=== PATIENT | male | born 1985 | race Caucasian/White ===

== ENCOUNTER 2016-08-01 12:23 | Inpatient (IN) | payer OTHER ==
[2016-08-01 13:12] VITALS: BMI 24.7
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
[2016-08-01] MEDS ORDERED: P-EPHED 60MG/TRIPROLIDI 2.5MG TABLET PO PRN (15:16)
[2016-08-01] MEDS ORDERED: MENTHOL/PHENOL 1 EACH UD MM PRN (15:16)
[2016-08-01] MEDS ORDERED: NICOTINE POLACRILEX 2 MG GUM BUC PRN (15:16)
[2016-08-01] MEDS ORDERED: MAG HYDROX/AL HYDROX/SIMETH 30 ML UNIT-DOSE CUP PO PRN (15:16)
[2016-08-01] MEDS ORDERED: IBUPROFEN 400 MG TABLET (FP) PO PRN (15:16)
[2016-08-01] MEDS ORDERED: guaiFENesin/D-METHORPHAN HB 10 ML UNIT-DOSE CUPS PO PRN (15:16)
[2016-08-01] MEDS ORDERED: MAGNESIUM HYDROX 2400MG/30ML ORAL SUSPENSION 30 ML CUP PO PRN (15:16)
[2016-08-01] MEDS ORDERED: hydrOXYzine PAMOATE 25 MG CAPSULE (FP) PO PRN (15:16)
[2016-08-01] MEDS ORDERED: MAGNESIUM CITRATE 300 ML BOTTLE PO PRN (15:16)
[2016-08-01] MEDS ORDERED: diazePAM 5 MG TABLET PO PRN (15:16)
[2016-08-01] MEDS ORDERED: LOPERAMIDE HCL 2 MG CAPSULE PO PRN (15:16)
[2016-08-01] MEDS ORDERED: ACETAMINOPHEN 325 MG TABLET (FP) PO PRN (15:16)
[2016-08-01] MEDS ORDERED: METHADONE HCL 10 MG TABLET (FOR DETOX USE ONLY) PO ONE ×2 (15:50→23:00)
--- NOTE | 2016-08-01 20:20 | PN ---
[facility] Progress Note Note: RECEIVED ER REPORT PATIENT IS MEDICALLY CLEARED FOR DETOX AT [facility] PATIENT IS ALERT ORIENTED X 3 AMBULATE STEADY GAIT SPEECH CLEARLY CALM AND COOPERATIVE
[2016-08-01] MEDS ORDERED: METHADONE HCL 10 MG TABLET (FOR DETOX USE ONLY) ONE (20:55)
[2016-08-01] MEDS: THIAMINE HCL 100 MG TABLET (FP) PO SCH (21:11)
[2016-08-01] MEDS: CYCLOBENZAPRINE HCL 10 MG TABLET (FP) PO SCH (21:11)
[2016-08-01] MEDS: diphenhydrAMINE HCL 50 MG CAPSULE PO PRN (21:13)
[2016-08-01] MEDS: NICOTINE 14 MG/24 HOURS TOPICAL PATCH TD SCH (21:15)
[2016-08-02 05:32] LABS: URINE APPEARANCE CLEAR; URINE BILIRUBIN NEGATIVE (NEGATIVE); URINE BLOOD NEGATIVE (NEGATIVE); URINE COLOR AMBER; URINE GLUCOSE (UA) NEGATIVE (NEGATIVE); URINE KETONE NEGATIVE (NEGATIVE); URINE LEUK ESTERASE NEGATIVE (NEGATIVE); URINE NITRITE NEGATIVE (NEGATIVE); URINE UROBILINOGEN NEGATIVE E.U./dl (0.2-1.0)
[2016-08-02 05:37] LABS: URINE PROTEIN 1+ (NEGATIVE)
[2016-08-02 05:39] LABS: CALCIUM OXALATE CRYSTALS RARE /hpf (NONE SEEN); URINE BACTERIA RARE /hpf (NONE SEEN); URINE HYALINE CAST 4 /lpf; URINE MUCUS MANY; URINE RBC <1 /hpf (0-3); URINE WBC <1 /hpf (3-5)
[2016-08-02] MEDS: CYCLOBENZAPRINE HCL 10 MG TABLET (FP) PO SCH ×3 (05:56→22:35)
[2016-08-02] MEDS ORDERED: METHADONE HCL 10 MG TABLET (FOR DETOX USE ONLY) PO ONE (10:00)
[2016-08-02] MEDS: NICOTINE 14 MG/24 HOURS TOPICAL PATCH TD SCH (10:21)
[2016-08-02] MEDS: PRENATAL VITAMINS W/ FOLIC ACID TABLET (FP) PO SCH (10:21)
[2016-08-02 10:32] LABS: MCH 29.1 pg (25.7-33.7); MCHC 33.7 g/dl (32.0-35.9); MEAN CELL VOLUME 86.3 fl (80-96); MEAN PLT VOLUME 8.7 fl (7.5-11.1); PLATELET COUNT 352 K/MM3 (134-434); RDW 13.2 % (11.9-15.9); WHITE BLOOD COUNT 5.2 K/mm3 (4.0-10.0)
--- NOTE | 2016-08-02 11:04 | PN ---
BHS COWS - Scale Resting Pulse: 1= [place] 81-100 Sweatin=Flushed/Facial Moisture Restless Observation: 1= Difficult to Sit Still Pupil Size: 2= Moderately Dilated Bone or Joint Aches: 1= Mild Discomfort Runny Nose/ Eye Tearin= Runny Nose/Eyes GI Upset > 30mins: 2= Nausea/Diarrhea Tremor Observation of Outstretched Hands: 1= Tremor [place], Not Seen Yawning Observation: 0= None Anxiety or Irritability: 2=Irritable/Anxious Goose Flesh Skin: 0=Smooth Skin COWS Score: 14 BHS Progress Note (SOAP) Objective: 08/02/16 11:03 Laboratory Tests 08/01/16 08/02/16 08/02/16 22:13 08:00 08:00 WBC 5.2 RBC 4.91 Hgb 14.3 Hct 42.4 MCV 86.3 MCHC 33.7 RDW 13.2 Plt Count 352 MPV 8.7 Sodium 136 Potassium 4.3 Chloride 103 Urine Color [place] Urine Appearance Clear Urine pH 5.0 Ur Specific [place] 1.030 Urine Protein 1+ H Urine Glucose (UA) Negative Urine Ketones Negative Urine Blood Negative Urine Nitrite Negative Urine Bilirubin Negative Urine Urobilinogen Negative Ur Leukocyte Esterase Negative Urine RBC <1 Urine WBC <1 Ur Epithelial Cells Rare Calcium Oxalate Crystal Rare Urine Bacteria Rare Hyaline Casts 4 Urine Mucus Many Vital Signs - 24 hr 08/01/16 08/01/16 08/02/16 13:10 22:06 00:22 Temperature 96.4 F L 98.9 F Pulse Rate 92 H 86 Respiratory 20 18 18 Rate Blood Pressure 122/87 126/80 08/02/16 08/02/16 06:31 09:30 Temperature 98.6 F 97.1 F L Pulse Rate 70 86 Respiratory 18 18 Rate Blood Pressure 117/81 125/73 Assessment: 08/02/16 11:03 ongoing withdrawal Plan: continue detox protocol
[2016-08-02 11:33] LABS: HIV 1 & 2 AB NEGATIVE; HIV 1 AGp24 NEGATIVE
[2016-08-02 11:56] LABS: ALBUMIN 4.6 g/dl (3.4-5.0); ALK PHOS 65 U/L (45-117); ANION GAP 5 (8-16); BILIRUBIN,TOTAL 1.1 mg/dL (0.2-1.0); CALCIUM 9.7 mg/dL (8.5-10.1); CO2 28 mmol/L (21-32); GLUCOSE,RANDOM 60 mg/dL (74-106); SGOT/AST 22 U/L (15-37); SGPT/ALT 27 U/L (12-78); TOT PROT 8.1 g/dl (6.4-8.2)
--- NOTE | 2016-08-02 16:20 | EKG ---
Test Reason : Blood Pressure : / mmHG Vent. Rate : 070 BPM Atrial Rate : 070 BPM P-R Int : 138 ms QRS Dur : 100 ms QT Int : 394 ms P-R-T Axes : 062 083 072 degrees QTc Int : 425 ms NORMAL SINUS RHYTHM WITH SINUS ARRHYTHMIA NORMAL ECG NO PREVIOUS ECGS AVAILABLE Confirmed by ILSA CROSS, THALIA ([id number]) on 08/02/2016 4:19:43 PM Referred By: Confirmed By:THALIA ROSENBAUM MD
--- NOTE | 2016-08-02 20:30 | CONSULT ---
[facility] Psychiatric Consult - Data Date of interview: 08/02/16 Admission source: [facility] Identifying data: Readmission to [facility] for this 31 y/o male seeking detox treatment on for heroin and cocaine dependence.Patient is ,a father of two,domiciled and employed. Substance Abuse History: - Smoking Cessation. Smoking history: Current every day smoker. Have you smoked in the past 12 months: Yes. Aproximately how many cigarettes per day: 3. Cigars Per Day: 0. Hx Chewing Tobacco Use: No. ' Breaking Loose' booklet given: 08/01/16. - Substance & Tx. History. Hx Alcohol Use: No (DENIES). Hx Substance Use: Yes (HEROIN/COCAINE). Substance Use Type: Cocaine, Heroin. Hx Substance Use Treatment: Yes ([facility]-DETOX). - Substances Abused. CRACK. Route: Inhalation. Frequency: 1-3 times last 30 days. Amount used: $100. Age of first use: 18. Date of Last Use: 07/31/16. * * Heroin. Route: Inhalation. Frequency: Daily. Amount used: 6-7 BAGS. Age of first use: 26. Date of Last Use: 08/01/16. OXYCODONE. Route: Oral. Frequency: 1-3 times last 30 days (RX OXYCODONE FOR PAIN MANAGEMENT). Amount used: 10 MG. Age of first use: 30. Date of Last Use: 06/20/16. Confirmed by patient. Medical History: Remarkable for a history of anemia and low back pain. Psychiatric History: Patient denies. Physical/Sexual Abuse/Trauma History: Patient denies. Additional Comment: Urine Drug Screen Results: CALOS-Cocaine, OPI-Opiates.Noted. Mental Status Exam - Mental Status Exam Alert and Oriented to: Time, Place, Person Cognitive Function: Good Patient Appearance: Well Groomed Mood: Hopeful, Euthymic Affect: Appropriate, Normal Range Patient Behavior: Appropriate, Cooperative Speech Pattern: Clear Voice Loudness: Normal Thought Process: Intact, Goal Oriented Thought Disorder: Not Present Hallucinations: Denies Suicidal Ideation: Denies Homicidal Ideation: Denies Insight/Judgement: Poor Sleep: Well Appetite: Good Muscle strength/Tone: Normal Gait/Station: Normal Psychiatric Findings - Problem List ([place] 1, 2,3) (1) Opioid dependence with withdrawal Current Visit: Yes Status: Acute (2) Cocaine dependence Current Visit: Yes Status: Acute (3) Nicotine dependence Current Visit: Yes Status: Acute Qualifiers: Nicotine product type: cigarettes Substance use status: uncomplicated Qualified Code(s): F17.210 - Nicotine dependence, cigarettes, uncomplicated (4) Chronic low back pain Current Visit: Yes Status: Chronic Qualifiers: Back pain laterality: unspecified (5) Ganglion of right hand Current Visit: Yes Status: Chronic (6) Herniated disc Current Visit: Yes Status: Chronic - Initial Treatment Plan Initial Treatment Plan: Psychoeducation.Detoxification.Observation.
[2016-08-02] MEDS: THIAMINE HCL 100 MG TABLET (FP) PO SCH (22:35)
[2016-08-02] MEDS: diphenhydrAMINE HCL 50 MG CAPSULE PO PRN (22:36)
[2016-08-03] MEDS: CYCLOBENZAPRINE HCL 10 MG TABLET (FP) PO SCH ×3 (05:56→22:24)
[2016-08-03] MEDS ORDERED: METHADONE HCL 5 MG TABLET (FOR DETOX USE ONLY) PO ONE (10:00)
[2016-08-03] MEDS: NICOTINE 14 MG/24 HOURS TOPICAL PATCH TD SCH (10:24)
[2016-08-03] MEDS: PRENATAL VITAMINS W/ FOLIC ACID TABLET (FP) PO SCH (10:24)
--- NOTE | 2016-08-03 14:46 | PN ---
BHS COWS - Scale Resting Pulse: 1= [place] 81-100 Sweatin= Chills/Flushing Restless Observation: 1= Difficult to Sit Still Pupil Size: 0= Normal to Room Light Bone or Joint Aches: 2= Severe Diffuse Aches Runny Nose/ Eye Tearin= Runny Nose/Eyes GI Upset > 30mins: 2= Nausea/Diarrhea Tremor Observation of Outstretched Hands: 2= Slight Tremor Visible Yawning Observation: 0= None Anxiety or Irritability: 2=Irritable/Anxious Goose Flesh Skin: 0=Smooth Skin COWS Score: 13 BHS Progress Note (SOAP) Subjective: Anxious, sweating, tremor, restless Objective: 08/03/16 14:43 Last Vital Signs Temp Pulse Resp BP Pulse Ox 97.1 F L 62 18 106/90 08/03/16 13:37 08/03/16 13:37 08/03/16 13:37 08/03/16 13:37 Laboratory Tests 08/01/16 08/02/16 08/02/16 22:13 08:00 08:00 WBC 5.2 RBC 4.91 Hgb 14.3 Hct 42.4 MCV 86.3 MCHC 33.7 RDW 13.2 Plt Count 352 MPV 8.7 Sodium 136 Potassium 4.3 Chloride 103 Carbon Dioxide 28 Anion Gap 5 L BUN 8 Creatinine 1.0 D Creat Clearance w eGFR > 60 Random Glucose 60 L D Calcium 9.7 Total Bilirubin 1.1 H D AST 22 D ALT 27 D Alkaline Phosphatase 65 D Total Protein 8.1 Albumin 4.6 Urine Color [place] Urine Appearance Clear Urine pH 5.0 Ur Specific [place] 1.030 Urine Protein 1+ H Urine Glucose (UA) Negative Urine Ketones Negative Urine Blood Negative Urine Nitrite Negative Urine Bilirubin Negative Urine Urobilinogen Negative Ur Leukocyte Esterase Negative Urine RBC <1 Urine WBC <1 Ur Epithelial Cells Rare Calcium Oxalate Crystal Rare Urine Bacteria Rare Hyaline Casts 4 Urine Mucus Many RPR Titer HIV 1&2 Antibody Screen HIV P24 Antigen 08/02/16 08/02/16 08:00 08:00 WBC RBC Hgb Hct MCV MCHC RDW Plt Count MPV Sodium Potassium Chloride Carbon Dioxide Anion Gap BUN Creatinine Creat Clearance w eGFR Random Glucose Calcium Total Bilirubin AST ALT Alkaline Phosphatase Total Protein Albumin Urine Color Urine Appearance Urine pH Ur Specific [place] Urine Protein Urine Glucose (UA) Urine Ketones Urine Blood Urine Nitrite Urine Bilirubin Urine Urobilinogen Ur Leukocyte Esterase Urine RBC Urine WBC Ur Epithelial Cells Calcium Oxalate Crystal Urine Bacteria Hyaline Casts Urine Mucus RPR Titer Nonreactive HIV 1&2 Antibody Screen Negative HIV P24 Antigen Negative Labs noted: UA 1+ protein Assessment: 08/03/16 14:45 Withdrawal symptoms Noted with proteinuria Plan: Continue detox Proteinuria: encouraged to drink more water, repeat UA
[2016-08-03] MEDS: THIAMINE HCL 100 MG TABLET (FP) PO SCH (22:24)
[2016-08-03] MEDS: diphenhydrAMINE HCL 50 MG CAPSULE PO PRN (22:24)
[2016-08-04] MEDS: CYCLOBENZAPRINE HCL 10 MG TABLET (FP) PO SCH ×3 (05:57→22:02)
[2016-08-04] MEDS ORDERED: METHADONE HCL 5 MG TABLET (FOR DETOX USE ONLY) PO ONE (10:00)
--- NOTE | 2016-08-04 10:32 | PN ---
BHS Progress Note (SOAP) Subjective: SWEATING,INTERRUPTED SLEEP,RESTLESS Objective: 08/04/16 10:31 Vital Signs - 8 hr 08/04/16 08/04/16 08/04/16 03:30 06:37 10:22 Temperature 97.2 F L 98.0 F Pulse Rate 81 82 Respiratory 18 16 18 Rate Blood Pressure 103/68 123/60 Laboratory Last Values WBC 5.2 K/mm3 (4.0-10.0) 08/02/16 08:00 RBC 4.91 M/mm3 (4.00-5.60) 08/02/16 08:00 Hgb 14.3 GM/dL (11.7-16.9) 08/02/16 08:00 Hct 42.4 % (35.4-49) 08/02/16 08:00 MCV 86.3 fl (80-96) 08/02/16 08:00 MCHC 33.7 g/dl (32.0-35.9) 08/02/16 08:00 RDW 13.2 % (11.9-15.9) 08/02/16 08:00 Plt Count 352 K/MM3 (134-434) 08/02/16 08:00 MPV 8.7 fl (7.5-11.1) 08/02/16 08:00 Sodium 136 mmol/L (136-145) 08/02/16 08:00 Potassium 4.3 mmol/L (3.5-5.1) 08/02/16 08:00 Chloride 103 mmol/L (98-107) 08/02/16 08:00 Carbon Dioxide 28 mmol/L (21-32) 08/02/16 08:00 Anion Gap 5 (8-16) L 08/02/16 08:00 BUN 8 mg/dL (7-18) 08/02/16 08:00 Creatinine 1.0 mg/dL (0.7-1.3) D 08/02/16 08:00 Creat Clearance w eGFR > 60 (>60) 08/02/16 08:00 Random Glucose 60 mg/dL (74-106) L D 08/02/16 08:00 Calcium 9.7 mg/dL (8.5-10.1) 08/02/16 08:00 Total Bilirubin 1.1 mg/dL (0.2-1.0) H D 08/02/16 08:00 AST 22 U/L (15-37) D 08/02/16 08:00 ALT 27 U/L (12-78) D 08/02/16 08:00 Alkaline Phosphatase 65 U/L (45-117) D 08/02/16 08:00 Total Protein 8.1 g/dl (6.4-8.2) 08/02/16 08:00 Albumin 4.6 g/dl (3.4-5.0) 08/02/16 08:00 Urine Color [place] 08/01/16 22:13 Urine Appearance Clear 08/01/16 22:13 Urine pH 5.0 (5.0-8.0) 08/01/16 22:13 Ur Specific [place] 1.030 (1.001-1.035) 08/01/16 22:13 Urine Protein 1+ (NEGATIVE) H 08/01/16 22:13 Urine Glucose (UA) Negative (NEGATIVE) 08/01/16 22:13 Urine Ketones Negative (NEGATIVE) 08/01/16 22:13 Urine Blood Negative (NEGATIVE) 08/01/16 22:13 Urine Nitrite Negative (NEGATIVE) 08/01/16 22:13 Urine Bilirubin Negative (NEGATIVE) 08/01/16 22:13 Urine Urobilinogen Negative E.U./dl (0.2-1.0) 08/01/16 22:13 Ur Leukocyte Esterase Negative (NEGATIVE) 08/01/16 22:13 Urine RBC <1 /hpf (0-3) 08/01/16 22:13 Urine WBC <1 /hpf (3-5) 08/01/16 22:13 Ur Epithelial Cells Rare /hpf (FEW) 08/01/16 22:13 Calcium Oxalate Crystal Rare /hpf (NONE SEEN) 08/01/16 22:13 Urine Bacteria Rare /hpf (NONE SEEN) 08/01/16 22:13 Hyaline Casts 4 /lpf 08/01/16 22:13 Urine Mucus Many 08/01/16 22:13 RPR Titer Nonreactive (NONREACTIVE) 08/02/16 08:00 HIV 1&2 Antibody Screen Negative 08/02/16 08:00 HIV P24 Antigen Negative 08/02/16 08:00 LABS NOTED Assessment: 08/04/16 10:32 WITHDRAWAL SX. Plan: CONTINUE DETOX
[2016-08-04] MEDS: NICOTINE 14 MG/24 HOURS TOPICAL PATCH TD SCH (10:38)
[2016-08-04] MEDS: PRENATAL VITAMINS W/ FOLIC ACID TABLET (FP) PO SCH (10:38)
[2016-08-04 22:01] LABS: URINE APPEARANCE SLCLOUDY; URINE BILIRUBIN NEGATIVE (NEGATIVE); URINE BLOOD NEGATIVE (NEGATIVE); URINE COLOR YELLOW; URINE GLUCOSE (UA) NEGATIVE (NEGATIVE); URINE KETONE NEGATIVE (NEGATIVE); URINE LEUK ESTERASE NEGATIVE (NEGATIVE); URINE NITRITE NEGATIVE (NEGATIVE); URINE PROTEIN NEGATIVE (NEGATIVE); URINE UROBILINOGEN NEGATIVE E.U./dl (0.2-1.0)
[2016-08-04] MEDS: THIAMINE HCL 100 MG TABLET (FP) PO SCH (22:02)
[2016-08-04] MEDS: diphenhydrAMINE HCL 50 MG CAPSULE PO PRN (22:03)
[2016-08-05] MEDS: CYCLOBENZAPRINE HCL 10 MG TABLET (FP) PO SCH ×3 (05:48→22:25)
[2016-08-05] MEDS ORDERED: METHADONE HCL 10 MG TABLET (FOR DETOX USE ONLY) PO ONE (10:00)
[2016-08-05] MEDS: NICOTINE 14 MG/24 HOURS TOPICAL PATCH TD SCH (10:21)
[2016-08-05] MEDS: PRENATAL VITAMINS W/ FOLIC ACID TABLET (FP) PO SCH (10:21)
--- NOTE | 2016-08-05 11:46 | PN ---
BHS Progress Note (SOAP) Subjective: SWEATING,INTERRUPTED SLEEP,RESTLESS Objective: 08/05/16 11:45 Vital Signs - 8 hr 08/05/16 08/05/16 06:19 09:20 Temperature 96.9 F L 97.9 F Pulse Rate 97 H 87 Respiratory 16 18 Rate Blood Pressure 116/81 134/78 Laboratory Last Values WBC 5.2 K/mm3 (4.0-10.0) 08/02/16 08:00 RBC 4.91 M/mm3 (4.00-5.60) 08/02/16 08:00 Hgb 14.3 GM/dL (11.7-16.9) 08/02/16 08:00 Hct 42.4 % (35.4-49) 08/02/16 08:00 MCV 86.3 fl (80-96) 08/02/16 08:00 MCHC 33.7 g/dl (32.0-35.9) 08/02/16 08:00 RDW 13.2 % (11.9-15.9) 08/02/16 08:00 Plt Count 352 K/MM3 (134-434) 08/02/16 08:00 MPV 8.7 fl (7.5-11.1) 08/02/16 08:00 Sodium 136 mmol/L (136-145) 08/02/16 08:00 Potassium 4.3 mmol/L (3.5-5.1) 08/02/16 08:00 Chloride 103 mmol/L (98-107) 08/02/16 08:00 Carbon Dioxide 28 mmol/L (21-32) 08/02/16 08:00 Anion Gap 5 (8-16) L 08/02/16 08:00 BUN 8 mg/dL (7-18) 08/02/16 08:00 Creatinine 1.0 mg/dL (0.7-1.3) D 08/02/16 08:00 Creat Clearance w eGFR > 60 (>60) 08/02/16 08:00 Random Glucose 60 mg/dL (74-106) L D 08/02/16 08:00 Calcium 9.7 mg/dL (8.5-10.1) 08/02/16 08:00 Total Bilirubin 1.1 mg/dL (0.2-1.0) H D 08/02/16 08:00 AST 22 U/L (15-37) D 08/02/16 08:00 ALT 27 U/L (12-78) D 08/02/16 08:00 Alkaline Phosphatase 65 U/L (45-117) D 08/02/16 08:00 Total Protein 8.1 g/dl (6.4-8.2) 08/02/16 08:00 Albumin 4.6 g/dl (3.4-5.0) 08/02/16 08:00 Urine Color Yellow 08/04/16 21:00 Urine Appearance Slcloudy 08/04/16 21:00 Urine pH 6.0 (5.0-8.0) 08/04/16 21:00 Ur Specific [place] 1.017 (1.001-1.035) 08/04/16 21:00 Urine Protein Negative (NEGATIVE) 08/04/16 21:00 Urine Glucose (UA) Negative (NEGATIVE) 08/04/16 21:00 Urine Ketones Negative (NEGATIVE) 08/04/16 21:00 Urine Blood Negative (NEGATIVE) 08/04/16 21:00 Urine Nitrite Negative (NEGATIVE) 08/04/16 21:00 Urine Bilirubin Negative (NEGATIVE) 08/04/16 21:00 Urine Urobilinogen Negative E.U./dl (0.2-1.0) 08/04/16 21:00 Ur Leukocyte Esterase Negative (NEGATIVE) 08/04/16 21:00 Urine RBC <1 /hpf (0-3) 08/01/16 22:13 Urine WBC <1 /hpf (3-5) 08/01/16 22:13 Ur Epithelial Cells Rare /hpf (FEW) 08/01/16 22:13 Calcium Oxalate Crystal Rare /hpf (NONE SEEN) 08/01/16 22:13 Urine Bacteria Rare /hpf (NONE SEEN) 08/01/16 22:13 Hyaline Casts 4 /lpf 08/01/16 22:13 Urine Mucus Many 08/01/16 22:13 RPR Titer Nonreactive (NONREACTIVE) 08/02/16 08:00 HIV 1&2 Antibody Screen Negative 08/02/16 08:00 HIV P24 Antigen Negative 08/02/16 08:00 LABS NOTED Assessment: 08/05/16 11:45 WITHDRAWAL SX. Plan: CONTINUE DETOX
[2016-08-05] MEDS: diphenhydrAMINE HCL 50 MG CAPSULE PO PRN (22:25)
[2016-08-05] MEDS: THIAMINE HCL 100 MG TABLET (FP) PO SCH (22:25)
[2016-08-06] MEDS: CYCLOBENZAPRINE HCL 10 MG TABLET (FP) PO SCH (05:52)
[2016-08-06] MEDS ORDERED: METHADONE HCL 5 MG TABLET (FOR DETOX USE ONLY) PO ONE ×2 (06:00→09:47)
[2016-08-06 06:19] VITALS: PULSE 98
[2016-08-06 09:54] VITALS: BP 119/81; TEMP 99.6
[2016-08-06] MEDS: NICOTINE 14 MG/24 HOURS TOPICAL PATCH TD SCH (10:30)
[2016-08-06] MEDS: PRENATAL VITAMINS W/ FOLIC ACID TABLET (FP) PO SCH (10:30)
--- NOTE | 2016-08-06 12:38 | DS ---
[facility] Detox Discharge Summary Admission Date: 08/01/16 Discharge Date: 08/06/16 - History Present History: Cocaine Dependence, Opioid Dependence Additional Comments: DETOX COMPLETED Pertinent Past History: GANGLIONIC CYST RIGHT WRIST HERNIATED DISC CHRONIC LOWER BACK PAIN - Physical Exam Results Vital Signs: Vital Signs Temperature 99.6 F 08/06/16 09:54 Pulse Rate 98 H 08/06/16 09:54 Respiratory Rate 18 08/06/16 09:54 Blood Pressure 119/81 08/06/16 09:54 O2 Sat by Pulse Oximetry (%) - Treatment Hospital Course: Detox Protocol Followed, Detoxed Safely, Responded well, Discharged Condition Good - Medication Discharge Medications: Ambulatory Orders NK [No Known Home Medication] 08/01/16 - Diagnosis (1) Ganglion of right hand Status: Chronic (2) Herniated disc Status: Chronic (3) Chronic low back pain Status: Chronic Qualifiers: Back pain laterality: unspecified (4) Nicotine dependence Status: Chronic Qualifiers: Nicotine product type: cigarettes Substance use status: uncomplicated Qualified Code(s): F17.210 - Nicotine dependence, cigarettes, uncomplicated (5) Opioid dependence with withdrawal Status: Acute (6) Cocaine abuse Status: Acute - AMA Did Patient Leave Against Medical Advice: No
== END 2016-08-06 10:45 | disposition home or self-care (01) | DRG 773 ==
LOC: YASAS 12:23 → Y3N 15:42
PROVIDERS: ADMIT Internal Medicine; ATTEND Internal Medicine
PROC: HZ2ZZZZ Detoxification Services for Substance Abuse Treatment (ICD-10-PCS; principal; 2016-08-01)
DX: F11.23 Opioid dependence with withdrawal (principal); F14.10 Cocaine abuse, uncomplicated; F17.210 Nicotine dependence, cigarettes, uncomplicated; M54.5 Low back pain; G89.29 Other chronic pain; M67.441 Ganglion, right hand; R80.9 Proteinuria, unspecified; Z86.2 Personal history of diseases of the blood and blood-forming organs and certain disorders involving the immune mechanism
CPT/HCPCS: 36415; 80053; 81003; 81015; 85027; 86593; 87389; 93005; 93010

== ENCOUNTER 2021-05-29 13:38 | Inpatient (IN) | payer BC, OTHER ==
[2021-05-29] MEDS ORDERED: NICOTINE 10 MG CARTRIDGE (INHALER) IH PRN (14:09)
[2021-05-29] MEDS ORDERED: IBUPROFEN 400 MG TABLET (FP) PO PRN (14:09)
[2021-05-29] MEDS ORDERED: diazePAM 5 MG TABLET PO PRN (14:09)
[2021-05-29] MEDS ORDERED: ACETAMINOPHEN 325 MG TABLET (FP) PO PRN ×2 (14:09)
[2021-05-29] MEDS ORDERED: ONDANSETRON *ODT* 4 MG TABLET SL PRN (14:09)
[2021-05-29] MEDS ORDERED: BISMUTH SUBSALICYLATE 262 MG/15 ML BTL PO PRN (14:09)
[2021-05-29] MEDS ORDERED: MENTHOL/PHENOL 1 EACH UD MM PRN (14:09)
[2021-05-29] MEDS ORDERED: MAGNESIUM HYDROX 2400MG/30ML ORAL SUSPENSION 30 ML CUP PO PRN (14:09)
[2021-05-29] MEDS ORDERED: MAGNESIUM CITRATE 300 ML BOTTLE PO PRN (14:09)
[2021-05-29] MEDS ORDERED: METHOCARBAMOL 500 MG TABLET PO PRN (14:09)
[2021-05-29 15:10] VITALS: BMI 26.1
[2021-05-29] MEDS ORDERED: hydrOXYzine PAMOATE 25 MG CAPSULE (FP) PO PRN (15:48)
[2021-05-29 17:20] LABS: HEMATOCRIT 37.8 % (35.4-49); HEMOGLOBIN 12.9 GM/dL (11.7-16.9); MCH 28.3 pg (25.7-33.7); MCHC 34.1 g/dl (32.0-35.9); MEAN CELL VOLUME 82.9 fl (80-96); MEAN PLT VOLUME 7.7 fl (7.5-11.1); PLATELET COUNT 324 10^3/uL (134-434); RBC 4.56 M/mm3 (4.00-5.60); RDW 14.3 % (11.9-15.9); WHITE BLOOD COUNT 6.6 K/mm3 (4.0-10.0)
[2021-05-29 17:29] LABS: ALBUMIN 4.1 g/dl (3.4-5.0); BLOOD UREA NITROGEN 7.4 mg/dL (7-18)
[2021-05-29 17:30] LABS: CALCIUM 9.4 mg/dL (8.5-10.1)
[2021-05-29 17:32] LABS: CREATININE 0.9 mg/dL (0.55-1.3)
[2021-05-29 17:33] LABS: BILIRUBIN,TOTAL 0.4 mg/dL (0.2-1); TOT PROT 7.9 g/dl (6.4-8.2)
[2021-05-29] MEDS ORDERED: hydrOXYzine PAMOATE 25 MG CAPSULE (FP) PO SCH (18:00)
[2021-05-29] MEDS: diazePAM 5 MG TABLET PO SCH ×2 (18:22→22:17)
[2021-05-29] MEDS: MAG HYDROX/AL HYDROX/SIMETH 30 ML UNIT-DOSE CUP PO PRN (19:58)
[2021-05-29] MEDS: THIAMINE HCL 100 MG TABLET (FP) PO SCH (22:17)
[2021-05-29] MEDS: MELATONIN 5 MG TABLETS PO SCH (22:17)
[2021-05-30] MEDS ORDERED: methaDONE HCL 40 MG DISPERSABLE TABLET ONE (04:36)
[2021-05-30] MEDS ORDERED: methaDONE HCL 10 MG TABLET ONE (04:36)
[2021-05-30] MEDS: diazePAM 5 MG TABLET PO SCH ×4 (05:46→22:04)
[2021-05-30] MEDS: methaDONE 40 MG, methaDONE 30 MG PO SCH (05:46)
[2021-05-30] MEDS ORDERED: methaDONE HCL 10 MG TABLET PO SCH ×2 (06:00→10:00)
[2021-05-30] MEDS: PRENATAL VITAMINS W/ FOLIC ACID TABLET (FP) PO SCH (10:17)
[2021-05-30] MEDS: MELATONIN 5 MG TABLETS PO SCH (22:04)
[2021-05-30] MEDS: THIAMINE HCL 100 MG TABLET (FP) PO SCH (22:04)
[2021-05-30] MEDS: MAG HYDROX/AL HYDROX/SIMETH 30 ML UNIT-DOSE CUP PO PRN (22:06)
[2021-05-31] MEDS ORDERED: methaDONE HCL 40 MG DISPERSABLE TABLET ONE (04:26)
[2021-05-31] MEDS ORDERED: methaDONE HCL 10 MG TABLET ONE (04:26)
[2021-05-31] MEDS: methaDONE 40 MG, methaDONE 30 MG PO SCH (05:09)
[2021-05-31] MEDS: diazePAM 5 MG TABLET PO SCH ×3 (05:10→22:46)
[2021-05-31] MEDS: PRENATAL VITAMINS W/ FOLIC ACID TABLET (FP) PO SCH (10:16)
[2021-05-31 10:38] LABS: SGOT/AST 219 U/L (15-37)
[2021-05-31 11:06] LABS: SGPT/ALT 352 U/L (13-61)
[2021-05-31] MEDS: MELATONIN 5 MG TABLETS PO SCH (22:45)
[2021-05-31] MEDS: THIAMINE HCL 100 MG TABLET (FP) PO SCH (22:46)
[2021-06-01] MEDS ORDERED: methaDONE HCL 40 MG DISPERSABLE TABLET ONE (04:26)
[2021-06-01] MEDS ORDERED: methaDONE HCL 10 MG TABLET ONE (04:26)
[2021-06-01] MEDS: methaDONE 40 MG, methaDONE 30 MG PO SCH (06:01)
[2021-06-01] MEDS: diazePAM 5 MG TABLET PO SCH ×2 (06:04→18:56)
[2021-06-01] MEDS: PRENATAL VITAMINS W/ FOLIC ACID TABLET (FP) PO SCH (10:40)
[2021-06-01] MEDS: THIAMINE HCL 100 MG TABLET (FP) PO SCH (23:16)
[2021-06-01] MEDS: MELATONIN 5 MG TABLETS PO SCH (23:16)
[2021-06-02] MEDS ORDERED: methaDONE HCL 10 MG TABLET ONE (04:43)
[2021-06-02] MEDS ORDERED: methaDONE HCL 40 MG DISPERSABLE TABLET ONE (04:43)
[2021-06-02] MEDS: methaDONE 40 MG, methaDONE 30 MG PO SCH (05:46)
[2021-06-02] MEDS ORDERED: diazePAM 5 MG TABLET PO ONE (06:00)
[2021-06-02 09:23] VITALS: BP 136/83; PULSE 67; TEMP 97.3
== END 2021-06-02 09:25 | disposition home or self-care (01) | DRG 897 ==
LOC: YASAS 13:38 → Y3N 14:45
PROVIDERS: ADMIT Allergy & Immunology; ATTEND Allergy & Immunology
PROC: HZ2ZZZZ Detoxification Services for Substance Abuse Treatment (ICD-10-PCS; principal; 2021-05-29)
DX: F11.23 Opioid dependence with withdrawal (principal); F10.230 Alcohol dependence with withdrawal, uncomplicated; F17.210 Nicotine dependence, cigarettes, uncomplicated; E78.5 Hyperlipidemia, unspecified; I10 Essential (primary) hypertension; K21.9 Gastro-esophageal reflux disease without esophagitis; M50.220 Other cervical disc displacement, mid-cervical region, unspecified level; M54.50 Low back pain, unspecified; G89.29 Other chronic pain; R74.01 Elevation of levels of liver transaminase levels; Z86.2 Personal history of diseases of the blood and blood-forming organs and certain disorders involving the immune mechanism
CPT/HCPCS: 36415; 80053; 84450; 84460; 85027; 86780; C9803; Q0162; U0003; U0005

== ENCOUNTER 2021-08-20 13:04 | Inpatient (IN) | payer BC, OTHER ==
[2021-08-20] MEDS ORDERED: ONDANSETRON *ODT* 4 MG TABLET SL PRN (13:50)
[2021-08-20] MEDS ORDERED: NICOTINE 10 MG CARTRIDGE (INHALER) IH PRN (13:50)
[2021-08-20] MEDS ORDERED: MAGNESIUM CITRATE 300 ML BOTTLE PO PRN (13:50)
[2021-08-20] MEDS ORDERED: MAGNESIUM HYDROX 2400MG/30ML ORAL SUSPENSION 30 ML CUP PO PRN (13:50)
[2021-08-20] MEDS ORDERED: ACETAMINOPHEN 325 MG TABLET (FP) PO PRN ×2 (13:50)
[2021-08-20] MEDS ORDERED: MAG HYDROX/AL HYDROX/SIMETH 30 ML UNIT-DOSE CUP PO PRN (13:50)
[2021-08-20] MEDS ORDERED: BISMUTH SUBSALICYLATE 262 MG/15 ML BTL PO PRN (13:50)
[2021-08-20] MEDS ORDERED: methaDONE HCL 10 MG TABLET (FOR DETOX USE ONLY) PO ONE (13:50)
[2021-08-20] MEDS ORDERED: MENTHOL/PHENOL 1 EACH UD MM PRN (13:50)
[2021-08-20 14:23] VITALS: BMI 27.8
[2021-08-20] MEDS: METHOCARBAMOL 500 MG TABLET PO PRN (15:54)
[2021-08-20] MEDS: IBUPROFEN 400 MG TABLET (FP) PO PRN (15:55)
[2021-08-20] MEDS: hydrOXYzine PAMOATE 25 MG CAPSULE (FP) PO SCH ×3 (15:55→22:19)
[2021-08-20] MEDS: cloNIDine HCL 0.1 MG TABLET PO PRN (18:13)
[2021-08-20] MEDS: MELATONIN 5 MG TABLETS PO SCH (22:18)
[2021-08-20] MEDS: THIAMINE HCL 100 MG TABLET (FP) PO SCH (22:20)
[2021-08-21] MEDS: hydrOXYzine PAMOATE 25 MG CAPSULE (FP) PO SCH ×5 (05:54→22:37)
[2021-08-21 09:35] LABS: HEMATOCRIT 37.9 % (35.4-49); HEMOGLOBIN 12.9 GM/dL (11.7-16.9); MCH 28.1 pg (25.7-33.7); MCHC 34.1 g/dl (32.0-35.9); MEAN CELL VOLUME 82.5 fl (80-96); MEAN PLT VOLUME 7.6 fl (7.5-11.1); PLATELET COUNT 327 10^3/uL (134-434); RBC 4.59 M/mm3 (4.00-5.60); RDW 13.9 % (11.9-15.9); WHITE BLOOD COUNT 6.5 K/mm3 (4.0-10.0)
[2021-08-21] MEDS ORDERED: methaDONE HCL 10 MG TABLET (FOR DETOX USE ONLY) ONE (10:08)
[2021-08-21 10:30] LABS: TOT PROT 7.4 g/dl (6.4-8.2)
[2021-08-21 10:32] LABS: ALBUMIN 3.7 g/dl (3.4-5.0)
[2021-08-21 10:33] LABS: CALCIUM 9.3 mg/dL (8.5-10.1)
[2021-08-21 10:35] LABS: CREATININE 0.9 mg/dL (0.55-1.3)
[2021-08-21 10:50] LABS: BILIRUBIN,TOTAL 0.8 mg/dL (0.2-1)
[2021-08-21] MEDS: METHOCARBAMOL 500 MG TABLET PO PRN ×2 (11:01→17:55)
[2021-08-21] MEDS: PRENATAL VITAMINS W/ FOLIC ACID TABLET (FP) PO SCH (11:01)
[2021-08-21] MEDS: IBUPROFEN 400 MG TABLET (FP) PO PRN (17:56)
[2021-08-21] MEDS: THIAMINE HCL 100 MG TABLET (FP) PO SCH (22:37)
[2021-08-21] MEDS: MELATONIN 5 MG TABLETS PO SCH (22:37)
[2021-08-22] MEDS: hydrOXYzine PAMOATE 25 MG CAPSULE (FP) PO SCH ×2 (05:53→10:24)
[2021-08-22] MEDS: METHOCARBAMOL 500 MG TABLET PO PRN (06:25)
[2021-08-22] MEDS: cloNIDine HCL 0.1 MG TABLET PO PRN ×2 (07:19→10:25)
[2021-08-22 08:48] VITALS: BP 130/78; PULSE 78; TEMP 97.7
[2021-08-22] MEDS ORDERED: methaDONE HCL 10 MG TABLET (FOR DETOX USE ONLY) PO ONE (10:00)
[2021-08-22] MEDS: PRENATAL VITAMINS W/ FOLIC ACID TABLET (FP) PO SCH (10:25)
[2021-08-24] MEDS ORDERED: methaDONE HCL 10 MG TABLET (FOR DETOX USE ONLY) PO ONE (10:00)
== END 2021-08-22 11:28 | disposition left against medical advice (07) | DRG 894 ==
LOC: YASAS 13:04 → Y6N 14:35
PROVIDERS: ADMIT Allergy & Immunology; ATTEND Allergy & Immunology
PROC: HZ2ZZZZ Detoxification Services for Substance Abuse Treatment (ICD-10-PCS; principal; 2021-08-20)
DX: F11.23 Opioid dependence with withdrawal (principal); F17.213 Nicotine dependence, cigarettes, with withdrawal; F31.9 Bipolar disorder, unspecified; F41.8 Other specified anxiety disorders; K21.9 Gastro-esophageal reflux disease without esophagitis; I10 Essential (primary) hypertension; E78.5 Hyperlipidemia, unspecified; M54.50 Low back pain, unspecified; G89.29 Other chronic pain
CPT/HCPCS: 36415; 80053; 85027; 86780; C9803; J0735; Q0162; U0003; U0005